=== PATIENT | female | born 1995 | race Caucasian/White ===

== ENCOUNTER 2018-09-01 17:46 | Emergency (ER) | payer OTHER ==
[~2018-09-01] VITALS: Ht 165.1 cm; Wt 108.9 kg
== END 2018-09-01 23:29 | disposition home or self-care (01) ==
LOC: ER 17:46
DX: O26.891 Other specified pregnancy related conditions, first trimester (principal); K52.9 Noninfective gastroenteritis and colitis, unspecified; Z34.01 Encounter for supervision of normal first pregnancy, first trimester

== ENCOUNTER 2018-09-11 09:56 | Emergency (ER) | payer OTHER ==
[~2018-09-11] VITALS: Ht 165.1 cm; Wt 108.9 kg
[2018-09-11] MEDS ORDERED: FOLIC ACID0.4 MG PO (10:06)
== END 2018-09-11 15:01 | disposition home or self-care (01) ==
LOC: ER 09:56
DX: O20.0 Threatened abortion (principal)

== ENCOUNTER → 2018-09-29 | Emergency (ER) | payer OTHER ==
[~2018-09-29] VITALS: Ht 165.1 cm; Wt 107.0 kg
[~2018-09-29] MED LIST: CEFADROXIL500 MG/5 M PO; FOLIC ACID0.4 MG PO; PEPCID40 MG PO; ZOFRAN4 MG PO
== END | disposition home or self-care (01) ==
LOC: ER 21:28
DX: O21.0 Mild hyperemesis gravidarum (principal); O23.31 Infections of other parts of urinary tract in pregnancy, first trimester; Z34.01 Encounter for supervision of normal first pregnancy, first trimester

== ENCOUNTER 2018-10-05 14:32 | Emergency (ER) | payer OTHER ==
[~2018-10-05] VITALS: Ht 165.1 cm; Wt 111.6 kg
== END 2018-10-05 18:37 | disposition home or self-care (01) ==
LOC: ER 14:32
DX: B34.9 Viral infection, unspecified (principal); J00 Acute nasopharyngitis [common cold]

== ENCOUNTER 2018-10-19 21:39 | Emergency (ER) | payer OTHER ==
[~2018-10-19] VITALS: Ht 165.1 cm; Wt 111.6 kg
[2018-10-20] MEDS ORDERED: METOCLOPRAMIDE10 MG PO (05:32)
[2018-10-20] MEDS ORDERED: PEPCID AC20 MG PO (05:32)
== END 2018-10-20 05:39 | disposition home or self-care (01) ==
LOC: ER 21:39
DX: O21.1 Hyperemesis gravidarum with metabolic disturbance (principal); Z3A.11 11 weeks gestation of pregnancy

== ENCOUNTER 2018-10-23 08:54 | Outpatient (CLI) | payer OTHER ==
[~2018-10-23 08:54] MED LIST changes: +METOCLOPRAMIDE10 MG PO; +PEPCID AC20 MG PO
== END 2018-10-23 10:00 | disposition home or self-care (01) ==
LOC: PRENATAL 08:54
DX: Z36.89 Encounter for other specified antenatal screening (principal); O35.3XX0 Maternal care for (suspected) damage to fetus from viral disease in mother, not applicable or unspecified

== ENCOUNTER 2018-11-09 09:20 | Emergency (ER) | payer OTHER ==
[~2018-11-09] VITALS: Ht 165.1 cm; Wt 113.4 kg
[2018-11-09] MEDS ORDERED: ATABEX DHA 200200 MG PO (09:30)
[2018-11-09] MEDS ORDERED: DUI500 PO (12:26)
== END 2018-11-09 12:49 | disposition home or self-care (01) ==
LOC: ER 09:20
DX: O23.32 Infections of other parts of urinary tract in pregnancy, second trimester (principal); Z3A.14 14 weeks gestation of pregnancy; R10.2 Pelvic and perineal pain

== ENCOUNTER 2018-11-30 13:08 | Emergency (ER) | payer OTHER ==
[~2018-11-30] VITALS: Ht 165.1 cm; Wt 115.7 kg
[~2018-11-30 13:08] MED LIST changes: +ATABEX DHA 200200 MG PO; +DUI500 PO
== END 2018-11-30 22:36 | disposition home or self-care (01) ==
LOC: ER 13:08
DX: O20.0 Threatened abortion (principal)

== ENCOUNTER → 2018-12-07 | Outpatient (CLI) | payer OTHER | END | disposition home or self-care (01) | LOC: PRENATAL 08:48 | DX: O99.212 Obesity complicating pregnancy, second trimester (principal); O35.3XX0 Maternal care for (suspected) damage to fetus from viral disease in mother, not applicable or unspecified ==

== ENCOUNTER 2018-12-18 18:15 | Emergency (ER) | payer OTHER ==
[~2018-12-18] VITALS: Ht 165.1 cm; Wt 113.4 kg
[2018-12-18] MEDS ORDERED: PRENATAL + DHA1 EAC1 (18:37)
== END 2018-12-18 23:52 | disposition home or self-care (01) ==
LOC: ER 18:15
DX: O21.0 Mild hyperemesis gravidarum (principal); Z34.01 Encounter for supervision of normal first pregnancy, first trimester

== ENCOUNTER 2019-01-21 11:28 | Outpatient (CLI) | payer OTHER ==
[~2019-01-21 11:28] MED LIST changes: +PRENATAL + DHA1 EAC1
== END 2019-01-21 16:25 | disposition home or self-care (01) ==
LOC: OBS/DEL 11:28
DX: O21.0 Mild hyperemesis gravidarum (principal); O99.612 Diseases of the digestive system complicating pregnancy, second trimester; K80.80 Other cholelithiasis without obstruction; O35.8XX0 Maternal care for other (suspected) fetal abnormality and damage, not applicable or unspecified

== ENCOUNTER 2019-01-29 02:06 | Outpatient (CLI) | payer OTHER ==
[2019-01-29] MEDS ORDERED: ZOFRAN8 MG PO ×2 (12:58→12:59)
== END 2019-01-29 16:36 | disposition home or self-care (01) ==
LOC: OBS/DEL 02:06
DX: O21.0 Mild hyperemesis gravidarum (principal); O99.612 Diseases of the digestive system complicating pregnancy, second trimester; K80.80 Other cholelithiasis without obstruction

== ENCOUNTER → 2019-02-08 | Outpatient (CLI) | payer OTHER ==
[~2019-02-08] MED LIST changes: +ZOFRAN8 MG PO
== END | disposition home or self-care (01) ==
LOC: PRENATAL 11-09 10:00
DX: O26.842 Uterine size-date discrepancy, second trimester (principal); O99.212 Obesity complicating pregnancy, second trimester; O99.89 Other specified diseases and conditions complicating pregnancy, childbirth and the puerperium

== ENCOUNTER 2019-03-13 10:29 | Inpatient (IN) | payer OTHER ==
[~2019-03-13] VITALS: Ht 165.1 cm; Wt 116.6 kg
== END 2019-03-15 13:53 | DRG 833 ==
LOC: LDR 10:29 → OB/GYN 10:29
PROVIDERS: ADMIT Specialist
PROC: BY4FZZZ Ultrasonography of Third Trimester, Single Fetus (ICD-10-PCS; principal; 2019-03-13)
PROC: 4A1HXCZ Monitoring of Products of Conception, Cardiac Rate, External Approach (ICD-10-PCS; 2019-03-13)
DX: O60.03 Preterm labor without delivery, third trimester (principal)

== ENCOUNTER 2019-03-30 11:06 | Inpatient (IN) | payer OTHER ==
[~2019-03-30] VITALS: Ht 165.1 cm; Wt 119.7 kg
[2019-04-25] MEDS ORDERED: PEPCID AC20 MG PO (05:24)
[2019-04-25] MEDS ORDERED: FOLIC ACID0.8 M1 PO (05:24)
[2019-04-25] MEDS ORDERED: ZOFRAN8 MG PO (05:24)
== END 2019-04-27 10:47 | DRG 807 ==
LOC: PRE-ADM 04-07 08:00 → PRENATAL 04-07 08:00 → ADM 04-07 08:00 → EDSTATUS 04-07 12:00 → LDR 04-25 05:00 → OB/GYN 04-25 15:19
PROVIDERS: ADMIT Specialist
PROC: 10E0XZZ Delivery of Products of Conception, External Approach (ICD-10-PCS; principal; 2019-04-25)
PROC: 4A1HXCZ Monitoring of Products of Conception, Cardiac Rate, External Approach (ICD-10-PCS; 2019-04-25)
DX: O80 Encounter for full-term uncomplicated delivery (principal); Z37.0 Single live birth; Z3A.38 38 weeks gestation of pregnancy

== ENCOUNTER 2019-04-25 03:35 | Outpatient (CLI) | payer OTHER ==
[2019-04-25] MEDS ORDERED: PEPCID AC20 MG PO (05:24)
[2019-04-25] MEDS ORDERED: ZOFRAN8 MG PO (05:24)
[2019-04-25] MEDS ORDERED: FOLIC ACID0.8 M1 PO (05:24)
== END 2019-04-25 11:12 | disposition still patient (30) ==
LOC: OBS/DEL 03:35
DX: O47.1 False labor at or after 37 completed weeks of gestation (principal)

== ENCOUNTER 2019-08-19 07:35 | Outpatient (CLI) | payer OTHER ==
[~2019-08-19 07:35] MED LIST changes: +FOLIC ACID0.8 M1 PO
== END 2019-08-19 07:37 | disposition home or self-care (01) ==
LOC: SONOGRAMA 07:35
DX: D41.4 Neoplasm of uncertain behavior of bladder (principal)

== ENCOUNTER 2020-08-15 12:53 | Emergency (ER) | payer OTHER ==
[~2020-08-15] VITALS: Ht 165.1 cm; Wt 105.2 kg
[2020-08-15] MEDS ORDERED: IBU600 MG PO (16:42)
[2020-08-15] MEDS ORDERED: VISTARIL50 MG PO (16:42)
== END 2020-08-15 17:13 | disposition home or self-care (01) ==
LOC: ER 12:53
DX: R07.89 Other chest pain (principal); F06.4 Anxiety disorder due to known physiological condition

== ENCOUNTER → 2020-11-03 | Emergency (ER) | payer OTHER ==
[~2020-11-03] VITALS: Ht 165.1 cm; Wt 98.0 kg
[~2020-11-03] MED LIST changes: +IBU600 MG PO; +VISTARIL50 MG PO
== END | disposition home or self-care (01) ==
LOC: ER 10:58
DX: E86.0 Dehydration (principal); R11.10 Vomiting, unspecified

== ENCOUNTER 2020-12-18 11:31 | Emergency (ER) | payer OTHER ==
[~2020-12-18] VITALS: Ht 165.1 cm; Wt 96.2 kg
== END 2020-12-18 15:24 | disposition home or self-care (01) ==
LOC: ER 11:31
DX: K52.89 Other specified noninfective gastroenteritis and colitis (principal)

== ENCOUNTER 2021-09-13 17:00 | Emergency (ER) | payer OTHER ==
[~2021-09-13] VITALS: Ht 165.1 cm; Wt 79.4 kg
[2021-09-13] MEDS ORDERED: TUSSIN DM CLEA118 M1 PO (20:06)
[2021-09-13] MEDS ORDERED: MEDROLPACK PO (20:06)
[2021-09-13] MEDS ORDERED: ZITHROMAX500 MG PO (20:06)
== END 2021-09-13 20:11 | disposition home or self-care (01) ==
LOC: ER 17:00
DX: A49.3 Mycoplasma infection, unspecified site (principal); J02.8 Acute pharyngitis due to other specified organisms